=== PATIENT | female | born 1965 | race Hispanic/Latino ===

== ENCOUNTER → 2019-04-23 | Outpatient (CLI) | payer BC ==
[~2019-04-23] MED LIST: CARAFATE1 GM/10 ML PO; NEXIUM40 MG PO; TYLENOL325 MG PO
--- NOTE | 2019-04-23 14:55 | Diagnostic Imaging Report ---
Exam: Left knee 3 views History: Pain Comparison: None. Findings: No fracture or malalignment. Joint spaces preserved. No abnormal soft tissue calcification or soft tissue defect. Impression: No acute osseous abnormality Signed by: Dr. Sameer Jeronimo M.D. on 04/23/2019 2:51 PM
== END ==
LOC: RAD 14:05
PROVIDERS: ATTEND Family Medicine
DX: M25.562 Pain in left knee (principal)